=== PATIENT | female | born 1940 | race Caucasian/White ===

== ENCOUNTER → 2016-10-03 | Outpatient (CLI) | payer OTHER ==
[~2016-10-03] MED LIST: IOPAMIDOL (ISOVUE 370) 100 ML BTL IV ONE
== END ==
LOC: CIMAGING 14:19
PROVIDERS: ATTEND Internal Medicine Cardiovascular Disease
DX: T82.856A Stenosis of peripheral vascular stent, initial encounter (principal); I77.1 Stricture of artery; I70.8 Atherosclerosis of other arteries; I73.9 Peripheral vascular disease, unspecified; F17.200 Nicotine dependence, unspecified, uncomplicated; M79.604 Pain in right leg; M79.605 Pain in left leg
CPT/HCPCS: 75635; Q9967

== ENCOUNTER 2016-10-15 09:26 | Observation (INO) | payer OTHER ==
[2016-10-15] MEDS ORDERED: NS 1,000 ML IV ONE (09:41)
[2016-10-15] MEDS ORDERED: DIAZEPAM 5 MG TAB PO ONE (09:41)
[2016-10-15] MEDS ORDERED: FAMOTIDINE 20 MG TAB PO ONE (09:41)
[2016-10-15] MEDS ORDERED: ASPIRIN EC 325 MG TAB PO ONE ×2 (09:41→10:47)
[2016-10-15] MEDS ORDERED: diphenhydrAMINE 25 MG CAP PO ONE ×2 (09:41→10:46)
[2016-10-15 10:44] LABS: % IMMATURE GRANULYOCYTES 0.6 % (0.0-1.1); ABSOLUTE IMMATURE GRANULOCYTES 0.04 10^3/uL (0.00-0.10); ADD DIFF? NO; ADD MORPH? NO; ADD SCAN? NO; ATYPICAL LYMPHOCYTE FLAG 0 (0-99); FRAGMENT RBC FLAG 20 (0-99); HEMATOCRIT 38.9 % (38.0-47.0); HEMOGLOBIN 13.2 g/dL (12.6-16.3); LEFT SHIFT FLG 0 (0-99); LIPEMIA HEMOLYSIS FLAG 90 (0-99); MEAN CELL HEMOGLOBIN 29.2 pg (27.9-34.1); MEAN CELL HEMOGLOBIN CONCENTR. 33.9 g/dL (32.4-36.7); MEAN CELL VOLUME 86.1 fL (81.5-99.8); PLATELET CLUMPS FLAG 0 (0-99); PLATELET COUNT 276 10^3/uL (150-400); RED BLOOD CELL COUNT 4.52 10^6/uL (4.18-5.33); RED CELL DISTRIBUTION WIDTH 14.6 % (11.5-15.2)
--- NOTE | 2016-10-15 10:45 | CPEKG ---
Heart Rate: 49 RR Interval: 1224 P-R Interval: 172 QRSD Interval: 140 QT Interval: 504 QTC Interval: 456 P Avilla: 65 QRS Avilla: -51 T Wave Avilla: -48 EKG Severity - ABNORMAL ECG - EKG Impression: SINUS BRADYCARDIA EKG Impression: RBBB AND LAFB EKG Impression: PROBABLE LVH WITH SECONDARY REPOL ABNRM Electronically Signed By: Osorio Phipps 16-Oct-2016 18:52:31
[2016-10-15] MEDS ORDERED: FAMOTIDINE 20 MG TAB ONE (10:46)
[2016-10-15] MEDS ORDERED: DIAZEPAM 5 MG TAB ONE (10:47)
[2016-10-15] MEDS ORDERED: fentaNYL 100 MCG/2 ML INJ ONE (10:51)
[2016-10-15] MEDS ORDERED: LIDOCAINE 1% 30 ML SDV ONE (10:51)
[2016-10-15] MEDS ORDERED: MIDAZOLAM 2 MG/2 ML VIAL ONE (10:52)
[2016-10-15] MEDS ORDERED: IOPAMIDOL (ISOVUE-300) 200 ML BTL IV ONE (10:52)
[2016-10-15 10:56] LABS: INR 1.03 (0.83-1.16); PROTIME(PATIENT) 13.4 SEC (12.0-15.0)
[2016-10-15] MEDS ORDERED: HEPARIN 10,000 UNIT/10 ML MDV ONE (10:59)
[2016-10-15 11:02] LABS: ANION GAP 11 mEq/L (8-16); CALCIUM 9.8 mg/dL (8.5-10.4); CARBON DIOXIDE 26 mEq/l (22-31); CHLORIDE 105 mEq/L (97-110); CHOLESTEROL 164 mg/dL (140-220); CHOLESTEROL/HDL RATIO 3.42 RATIO (1.00-4.44); CREATININE 0.9 mg/dL (0.6-1.0); GLOMERULAR FILTRATION RATE > 60; GLUCOSE 128 mg/dL (70-100); HIGH DENSITY LIPOPROTEIN 48 mg/dL (40-85); LOW DENSITY LIPOPROTEIN 91 mg/dL (80-100); MAGNESIUM 1.4 mg/dL (1.6-2.3); NON-HIGH DENSITY LIPOPROTEIN 116 mg/dL (90-129); POTASSIUM 4.5 mEq/L (3.5-5.2); SODIUM 142 mEq/L (134-144); TRIGLYCERIDE 127 mg/dL (35-135); VERY LOW DENSITY LIPOPROTEINS 25 mg/dL (8-25)
[2016-10-15] MEDS ORDERED: LABETALOL HCL 5 MG/ML 20 ML MDV IV ONE (11:30)
[2016-10-15] MEDS ORDERED: LOSARTAN POTASSIUM 50 MG TAB PO ONE (11:30)
[2016-10-15] MEDS ORDERED: hydrALAZINE 20 MG/ML VIAL ONE (12:08)
[2016-10-15] MEDS ORDERED: CLOPIDOGREL BISULFATE 75 MG TAB ONE (13:32)
[2016-10-15] MEDS ORDERED: ONDANSETRON 4 MG/2 ML VIAL ONE (14:02)
[2016-10-15] MEDS ORDERED: TEMAZEPAM 15 MG CAP PO PRN (14:47)
[2016-10-15] MEDS ORDERED: LORazepam 2 MG/ML INJ IVP PRN (14:47)
[2016-10-15] MEDS ORDERED: CLOPIDOGREL BISULFATE 75 MG TAB PO ONE (14:47)
[2016-10-15] MEDS ORDERED: ATROPINE SULFATE 1 MG/10 ML SYR IVP PRN (14:47)
--- NOTE | 2016-10-15 15:29 | CPIP ---
[f rep st] INVASIVE CARDIAC PROCEDURE DATE OF PROCEDURE: 10/15/2016 PROCEDURE: 1. Abdominal aortography. 2. Right lower extremity via ipsilateral approach with catheter placed in the right common iliac ar fariba. 3. Left lower extremity angiography via contralateral approach with catheter placed in the left sup erficial femoral artery. 4. Angioplasty of left superficial femoral artery using needlemaker and drug-coated balloons. INDICATION: Lifestyle-limiting claudication. ACCESS: Patient was prepped and draped in sterile fashion. 1% lidocaine was used to anesthetize th e right inguinal region. A 6-Yemeni introducer sheath was placed selectively into the right common femoral artery via modified Seldinger technique. ABDOMINAL AORTOGRAPHY: A 6-Yemeni pigtail catheter was advanced into the abdominal aorta and images obtained via power injection through the [employer] system. The abdominal aorta had mild diffuse disea se throughout with no stenosis greater than 10% to 20%. There was a single right renal artery which appeared free of any significant disease. There is a single left renal artery which appeared to méndez ve an ostial of 30% to 40% stenosis present. The distal abdominal aorta then bifurcated into right and left common iliac arteries. Left lower extremity angiography via contralateral approach with ca theter placed in the left superficial femoral artery. A 5-Yemeni contra II catheter was advanced in to the abdominal aorta and reformed into its usual position. This was used to selectively engage th e left common iliac artery. The left common iliac artery bifurcated into an internal iliac artery a nd external iliac arteries. The left common iliac artery had mild luminal irregularities throughout . There was no stenosis greater than 10%. The left internal iliac artery appeared free of any sign ificant disease. The left external iliac artery had mild luminal irregularities. There was no sten osis greater than 10%. The left external iliac artery then turned into the left common femoral andrae ry which then bifurcated into the superficial femoral artery and profunda femoral artery. The Contr a II angled Glidewire was advanced into the left external iliac artery and exchanged for a straight flush catheter and images obtained. The left external iliac artery turned into the left common femo ral artery which then bifurcated into the superficial femoral artery and profunda femoral artery. T he left common femoral artery had mild luminal regularities throughout. There was no stenosis great er than 10%. The left profunda femoral artery appeared free of any significant disease. The left s uperficial femoral artery was diffusely diseased. Images were obtained. After advancing an angled glide catheter into the left superficial femoral artery. The left superficial femoral artery had a proximal single discrete 90% stenosis present. In the midvessel previously placed stent can be seen . The previously placed stent had diffuse in-stent restenosis which approached 50% in severity. Th e distal left superficial femoral artery and popliteal artery appeared normal. Below the knee, ther e was 3-vessel runoff. The angled glide catheter was advanced into the distal superficial femoral a rtery, and a pullback gradient across the midvessel and stented segment was obtained. There was no significant gradient on pullback. The catheter was then pulled back into the proximal superficial f emoral artery, revealing a significant gradient across the 90% stenosis. Right lower extremity cassy ography via ipsilateral approach with catheter placed in the right common iliac artery. A straight flush catheter was placed in the right common iliac artery and images obtained. The right common il iac artery bifurcated into an external iliac artery and internal iliac artery. The right common jf ac artery appeared free of any significant disease. The right internal iliac artery had an ostial 3 0% stenosis present. The right external iliac artery had mild diffuse disease with no stenosis grea ter than 20%. The remainder of the right lower extremity was imaged via hand injection through the 6-Yemeni introducer sheath placed in the common femoral artery. The right common femoral artery bif urcated into the superficial femoral artery and profunda femoral arteries. The right superficial fe moral artery is diffusely diseased. In the midvessel. There was no stenosis greater than 40%. The profunda femoral artery is free of any significant disease. The right superficial femoral artery t urned into the popliteal artery which is free of any significant disease. Below the knee, there is 3-vessel runoff. LEFT SUPERFICIAL FEMORAL ARTERY ANGIOPLASTY: A 6-Yemeni pinnacle introducer sheath was advanced int o the left external iliac artery and position verified by angiography. An angled glide wire was catherine alfredito across the proximal superficial femoral artery lesion and position verified by angiography. A 4 .0 x 40 Nut Roaster Helper balloon was used to pre-dilate the lesion. Followup angiography demonstrated no sig nificant residual stenosis. A 5.0 x 40 drug-coated balloon was then placed across the lesion and de ployed. Followup angiography demonstrated no residual stenosis and good run off. COMPLICATIONS: None. CONCLUSIONS: 1. 30% left renal artery stenosis. 2. 90% proximal left SFA stenosis with significant gradient. 3. 50% in-stent restenosis of the mid left SFA stent with no significant gradient on pullback. 4. Moderate right lower extremity disease with no flow limitation. 5. Status post successful angioplasty and drug-coated balloon angioplasty of the left superficial f emoral artery. /[id number]/MODL
[2016-10-15] MEDS ORDERED: PROTOCOL MAGNESIUM 1 DOSE IV PRN (17:39)
[2016-10-15] MEDS ORDERED: MAGNESIUM SULF 2 GM/WATER 50 ML IV ONE (17:51)
[2016-10-15] MEDS: hydrALAZINE 10 MG TAB PO SCH ×2 (18:13→21:30)
[2016-10-15] MEDS: NITROFURANTOIN MACROBID 100 MG CAP PO SCH (20:30)
[2016-10-15] MEDS: PANTOPRAZOLE SODIUM 40 MG TAB PO SCH (20:30)
[2016-10-16] MEDS: NITROGLYCERIN 0.4 MG BTL SL PRN ×2 (00:15→05:30)
[2016-10-16 05:22] LABS: % IMMATURE GRANULYOCYTES 0.3 % (0.0-1.1); ABSOLUTE IMMATURE GRANULOCYTES 0.04 10^3/uL (0.00-0.10); ADD DIFF? NO; ADD MORPH? NO; ADD SCAN? NO; ATYPICAL LYMPHOCYTE FLAG 0 (0-99); FRAGMENT RBC FLAG 20 (0-99); HEMATOCRIT 37.1 % (38.0-47.0); HEMOGLOBIN 12.2 g/dL (12.6-16.3); LEFT SHIFT FLG 0 (0-99); LIPEMIA HEMOLYSIS FLAG 80 (0-99); MEAN CELL HEMOGLOBIN 28.6 pg (27.9-34.1); MEAN CELL HEMOGLOBIN CONCENTR. 32.9 g/dL (32.4-36.7); MEAN CELL VOLUME 86.9 fL (81.5-99.8); MEAN PLATELET VOLUME 10.2 fL (8.7-11.7); PLATELET CLUMPS FLAG 0 (0-99); PLATELET COUNT 290 10^3/uL (150-400); RED BLOOD CELL COUNT 4.27 10^6/uL (4.18-5.33); RED CELL DISTRIBUTION WIDTH 14.9 % (11.5-15.2)
[2016-10-16 05:57] LABS: ANION GAP 10 mEq/L (8-16); CALCIUM 9.6 mg/dL (8.5-10.4); CARBON DIOXIDE 23 mEq/l (22-31); CHLORIDE 107 mEq/L (97-110); CREATININE 0.7 mg/dL (0.6-1.0); GLOMERULAR FILTRATION RATE > 60; GLUCOSE 115 mg/dL (70-100); MAGNESIUM 1.8 mg/dL (1.6-2.3); POTASSIUM 3.8 mEq/L (3.5-5.2); SODIUM 140 mEq/L (134-144)
[2016-10-16] MEDS ORDERED: LEVOTHYROXINE 100 MCG TAB PO SCH (06:00)
[2016-10-16] MEDS: hydrALAZINE 10 MG TAB PO SCH (06:42)
[2016-10-16] MEDS ORDERED: NEBIVOLOL HCL 5 MG TAB PO SCH (09:00)
[2016-10-16] MEDS ORDERED: CLOPIDOGREL BISULFATE 75 MG TAB PO SCH (09:00)
[2016-10-16] MEDS ORDERED: EZETIMIBE 10 MG TAB PO SCH (09:00)
[2016-10-16] MEDS ORDERED: CHOLECALCIFEROL VIT D3 2,000 UNITS TAB/CAP PO SCH (09:00)
[2016-10-16] MEDS ORDERED: ATORVASTATIN CALCIUM 20 MG TAB PO SCH (09:00)
[2016-10-16] MEDS ORDERED: CITALOPRAM 20 MG TAB PO SCH (09:00)
[2016-10-16] MEDS ORDERED: LOSARTAN POTASSIUM 50 MG TAB PO SCH (09:00)
[2016-10-16] MEDS ORDERED: ASPIRIN EC 325 MG TAB PO SCH (09:00)
[2016-10-16] MEDS: PANTOPRAZOLE SODIUM 40 MG TAB PO SCH (09:24)
[2016-10-16] MEDS: NITROFURANTOIN MACROBID 100 MG CAP PO SCH (09:24)
[2016-10-16 11:09] VITALS: BP 164/51; PULSE 73; RESP 18; TEMP 98.5; O2SAT 90
[2016-10-16] MEDS ORDERED: MAGNESIUM SULF 1 GM/DEXTROSE 100 ML IV ONE (11:42)
--- NOTE | 2016-10-16 13:57 | PDIAF ---
- Diagnosis Diagnosis: stent placement - Medication Management Discharge Medications: Medications to Continue on Transfer Atorvastatin Calcium [Lipitor 20 mg (*)] 20 mg PO DAILY 10/15/16 [Last Taken ] Cholecalciferol Vit D3 [Vitamin D3 (*)] 2,000 units PO DAILY 10/15/16 [Last Taken 10/14/16] Citalopram [CeleXA 20 MG] 40 mg PO DAILY 10/15/16 [Last Taken 10/14/16] Ezetimibe [Zetia] 10 mg PO DAILY 10/15/16 [Last Taken 10/14/16] LANSOPRAZOLE [Prevacid 30 mg cap] 30 mg PO BID 10/15/16 [Last Taken 10/14/16] Levothyroxine [Synthroid 100 mcg (*)] 100 mcg PO DAILY06 10/15/16 [Last Taken ] Losartan Potassium [Cozaar 50 mg (*)] 100 mg PO DAILY 10/15/16 [Last Taken 10/14] Metformin HCl [Metformin 1000 mg] 1,000 mg PO DAILY 10/15/16 [Last Taken ] Nebivolol HCl [Bystolic] 10 mg PO DAILY 10/15/16 [Last Taken 10/14/16] Nitroglycerin [Nitrostat 0.4 mg (*)] 0.4 mg SL Q5M PRN 10/15/16 [Last Taken Unknown] sitaGLIPtin PHOSPHATE [Januvia 100 MG (*)] 100 mg PO DAILY 10/15/16 [Last Taken 10/14/16] Aspirin EC [Aspirin EC 325 mg (*)] 325 mg PO DAILY #0 tab 10/16/16 [Last Taken Unknown] Clopidogrel Bisulfate [Plavix (*)] 75 mg PO DAILY #30 tab 10/16/16 [Last Taken Unknown] Nitrofurantoin Macrobid [Macrobid] 100 mg PO BID #0 cap 10/16/16 [Last Taken Unknown] hydrALAZINE [Apresoline 10 mg (*)] 10 mg PO TID #90 tab 10/16/16 [Last Taken Unknown] Discharge Medications: Refer to the Discharge Home Medication list for PRN reason. PICC Care - Routine: N/A - Orders Services needed: Home Care, Registered Nurse, Physical Therapy, Occupational Therapy Home Care Face to Face: I certify that this patient was under my care and that I had the required [id number] encounter meeting the encounter requirements on the discharge day. My findings support the fact that the patient is homebound as defined in CMS Chapter 7 Medicare Benefits Manual 30.1.1, The condition of the patient is such that there exists a normal inability to leave home and consequently, leaving home would require a considerable and taxing effort. Diet Recommendation: cardiac -low fat low salt Diet Texture: Regular Texture Diet - Follow Up Care Current Providers and Referrals: Arianna Otero PA [Physician Accountant Auditor] - 11/05/16 3:30 pm (this is at our [place] office) Missael Hernandez MD [Medical Doctor] - NONE *PRIMARY CARE P,. [Primary Care Provider] -
--- NOTE | 2016-10-16 14:52 | GDS ---
[f rep st] DISCHARGE SUMMARY DISCHARGE DIAGNOSES: 1. Peripheral vascular disease status post left lower extremity angiography via contralateral approach, and 90% proximal left superficial femoral artery stenosis with significant gradient, status post successful angioplasty and drug- coated balloon angioplasty of left superficial femoral artery. 2. History of coronary artery disease with percutaneous coronary intervention to left anterior descending in 2002 and 2003. 3. Hypertension. 4. Dyslipidemia. 5. Type 2 diabetes mellitus. 6. Chronic renal insufficiency. 7. Mild aortic stenosis. 8. Moderate pulmonary hypertension. 9. History of mild to moderate tricuspid regurgitation. 10. Questionable altered mental status on day of discharge with no focal findings and improved mentation by discharge. PRIMARY STATISTICAL FINANCIAL ANALYST: Dr. Powell. BRIEF HISTORY: The patient is a 76-year-old female, with multiple medical conditions, who was recently seen in office with worsening lifestyle-limiting claudications. She has a history of previous PCI to her left superficial femoral artery, and started to note bilateral calf claudications over the past several months. She proceeded to peripheral angiography and was found to have a 90% left SFA stenosis with a significant gradient. This was treated with a balloon angioplasty to the left SFA. HOSPITAL COURSE BY PROBLEM: 1. PVD status post PCI. Groin site appears stable, she denies any rest pain. She has ambulated without difficulty. 2. Altered mental status. She was evaluated by Hospital Medicine. There were no focal deficits on exam. She is currently being treated for a UTI. Likely this is related to anesthesia given yesterday for her procedure. By afternoon her mental status has cleared, and she is back to her baseline. She will be discharged to home after PT and OT evaluations, and will have a home visit for evaluation of home safety. RESULTS PENDING: None. DIET: Cardiac diet recommended. ACTIVITY: Groin precautions were reviewed. DISCHARGE MEDICATIONS: Please see medication reconciliation for complete details. She is being discharged on her home Januvia, levothyroxine, cholecalciferol, losartan, lansoprazole, nitroglycerin, metformin, Zetia, Celexa , Bystolic, atorvastatin, Macrobid. Her aspirin dose is being increased to 325 mg p.o. daily. She is being started on clopidogrel 75 mg p.o. daily, as well as hydralazine 10 mg p.o. three times daily. FOLLOWUP: 1. Nurse followup visit in our office on October 23, 2016 at 1:45 p.m. 2. Followup with Arianna Otero on 11/05/2016 at 3:30 p.m. /[id number]/MODL MTDD
--- NOTE | 2016-10-16 14:57 | GCON ---
[f rep st] CONSULTATION DATE OF CONSULTATION: 10/16/2016 REASON FOR CONSULTATION: Medical evaluation. HISTORY OF PRESENT ILLNESS: The patient is a 76-year-old female, who presented to the hospital for a scheduled angioplasty and stent placement in her left superficial femoral artery. I am asked to c onsult on the patient postprocedure day 1 secondary to mild confusion and altered mental status. Th e patient denies any nausea, vomiting, diarrhea. Denies any fever, sweats, or night chills. Denies any dyspnea, shortness of breath, or chest pain. PAST MEDICAL HISTORY: 1. Depression. 2. Chronic pain. 3. Coronary artery disease. 4. Diabetes mellitus. 5. Fibromyalgia. 6. GERD. 7. Hyperlipidemia. 8. Essential hypertension. 9. Hypothyroidism. 10. Chronic tobacco use. 11. Vitamin D deficiency. PAST SURGICAL HISTORY: 1. Appendectomy. 2. Coronary artery stenting. 3. Hysterectomy. ALLERGIES: 1. LEONIE inhibitors. 2. Cephalosporins. 3. Codeine. 4. Hydrocodone. 5. Hydromorphone. 6. Macrolides. 7. Sulfa. 8. Ranitidine. 9. Quinolones. 10. Prozac. 11. Proton pump inhibitors. 12. Penicillin. HOME MEDICATIONS: Januvia 100 mg daily, Synthroid 100 mcg daily, vitamin D 2000 units daily, Cozaar 100 mg daily, Prevacid 30 mg b.i.d., Nitroglycerin p.r.n., metformin 1000 mg daily, Zetia 10 mg ida ly, Celexa 40 mg daily, Bystolic 10 mg daily, Lipitor 20 mg daily, hydralazine 10 mg t.i.d., Macrobi d 100 mg b.i.d., Plavix 75 mg daily, aspirin 325 mg daily. FAMILY HISTORY: Heart disease, lupus. SOCIAL HISTORY: The patient is . She uses tobacco on a daily basis. She admits to occasion al alcohol, 1-2 beers a week. REVIEW OF SYSTEMS: Comprehensive 10-point review of systems is negative other than noted in the HPI . PHYSICAL EXAM: GENERAL: The patient is alert, oriented, able to answer my questions appropriately. VITAL SIGNS: Afebrile at 36.9, pulse is 73, respiratory rate is 18, blood pressure is 164/51. Sh e is saturating 90% on room air. HEENT: Normocephalic, atraumatic. Mucosal membranes are moist. Pupils equal, round, reactive to light. RESPIRATORY: Lungs are clear to auscultation bilaterally i n the upper lobes, decreased in the bases throughout. No rhonchi or wheezes appreciated. CARDIOVAS CULAR: S1, S2. Normal rate. GASTROINTESTINAL/ABDOMEN: Bowel sounds are positive. Soft and nonten sebas. There is no guarding or rigidity noted. EXTREMITIES: Within normal limits. There is no club gurwinder or cyanosis appreciated. SKIN: Without rashes or lesions. PSYCHIATRIC: The patient's judgme nt and insight are felt to be intact. She does admit to depressed mood. ASSESSMENT/PLAN: A 76-year-old female seen in consultation secondary to acute altered mental status . I have reviewed the patient with Cardiology. 1. Altered mental status. The patient is oriented x4, would like to be discharged home. Is eager about leaving the hospital. She does state that she has some severe depression and that she feels t hat her overall mood and well being are secondary to her depression. She has contracted for safety. She denies any suicidal ideation. She just wants to be discharged from the hospital. 2. Generalized weakness. The patient has been offered home care physical therapy, occupational the rapy, and RN to come and check on her. Per the patient's , they are agreeable to these servi margaret. I have ordered these services at the time of disposition. 3. Tobacco abuse. The patient has been educated and received nicotine cessation education. She is aware that she should discontinue her tobacco use. 4. Hypertension. This is managed by Cardiology. DISPOSITION: It has been suggested that the patient stay overnight in the hospital secondary to mil d confusion; however, both she and her are eager to be discharged home and do not wish to st ay in the hospital overnight. I feel that she is safe to be discharged home with her and [facility]. She is oriented at the time of my assessment and agrees to return to the emergency room if she has any complications or difficulties when at home. I reviewed the patient's care with Cardiology. I appreciate the ability to consult on this pleasant woman's care. Followup will be wi th her primary care physician as well as her gas desulfurizer. /[id number]/MODL
== END 2016-10-16 15:15 | disposition home health service (06) ==
LOC: FCATH 09:26 → F2W 13:42
PROVIDERS: ADMIT Internal Medicine Cardiovascular Disease; ATTEND Internal Medicine Cardiovascular Disease
PROC: 04HL33Z Insertion of Infusion Device into Left Femoral Artery, Percutaneous Approach (ICD-10-PCS; principal; 2016-10-15)
PROC: 047L3Z1 Dilation of Left Femoral Artery using Drug-Coated Balloon, Percutaneous Approach (ICD-10-PCS; principal; 2016-10-15)
PROC: 04HC33Z Insertion of Infusion Device into Right Common Iliac Artery, Percutaneous Approach (ICD-10-PCS; principal; 2016-10-15)
DX: I70.213 Atherosclerosis of native arteries of extremities with intermittent claudication, bilateral legs (principal); T82.856A Stenosis of peripheral vascular stent, initial encounter; I70.1 Atherosclerosis of renal artery; I73.9 Peripheral vascular disease, unspecified; R41.82 Altered mental status, unspecified; R53.1 Weakness; I77.1 Stricture of artery; M79.604 Pain in right leg; M79.605 Pain in left leg; I25.10 Atherosclerotic heart disease of native coronary artery without angina pectoris; E11.22 Type 2 diabetes mellitus with diabetic chronic kidney disease; N18.9 Chronic kidney disease, unspecified; M79.7 Fibromyalgia; F32.9 Major depressive disorder, single episode, unspecified; K21.9 Gastro-esophageal reflux disease without esophagitis; E78.5 Hyperlipidemia, unspecified; I12.9 Hypertensive chronic kidney disease with stage 1 through stage 4 chronic kidney disease, or unspecified chronic kidney disease; E03.9 Hypothyroidism, unspecified; F17.210 Nicotine dependence, cigarettes, uncomplicated; I35.0 Nonrheumatic aortic (valve) stenosis; I27.2 Other secondary pulmonary hypertension; I36.1 Nonrheumatic tricuspid (valve) insufficiency; G89.29 Other chronic pain; E55.9 Vitamin D deficiency, unspecified; Z79.82 Long term (current) use of aspirin; Z79.84 Long term (current) use of oral hypoglycemic drugs; Z95.5 Presence of coronary angioplasty implant and graft; Z88.2 Allergy status to sulfonamides; Z88.0 Allergy status to penicillin
CPT/HCPCS: 36012; 36140; 36245; 37224; 75625; 75716; 93005; C1725; C1760; C1769; C2623; J0360; J1644; J2250; J2405; J3010; J3475; Q9967

== ENCOUNTER → 2017-08-11 | Outpatient (CLI) | payer OTHER | LOC: CIMAGING 10:29 | PROVIDERS: ATTEND Family Medicine | DX: I70.0 Atherosclerosis of aorta (principal); Z87.09 Personal history of other diseases of the respiratory system; Z87.891 Personal history of nicotine dependence | CPT/HCPCS: 71250-PO ==